=== PATIENT | female | born 1950 | race Asian ===

== ENCOUNTER → 2021-03-09 | Outpatient (CLI) | payer MEDICARE ==
[2006-01-16 08:45] VITALS: TEMP 97
[~2021-03-09] MED LIST: ACCUPRIL 1010 MG/TAB PO; GLIPIZIDE10 M1 PO; INSULIN LANTIS; METFORMIN
== END ==
LOC: MC.RAD 12:00
DX: N64.89 Other specified disorders of breast (principal); R92.8 Other abnormal and inconclusive findings on diagnostic imaging of breast